=== PATIENT | female | born 1970 | race Caucasian/White ===

== ENCOUNTER 2018-06-27 15:30 | Emergency (ER) | payer OTHER ==
[2018-06-27 15:35] VITALS: BP 113/61
--- NOTE | 2018-06-27 16:23 | EDPHY ---
H & P Stated Complaint: l calf pain/hx dvt 2003 Time Seen by Provider: 06/27/18 15:55 - Personal History LMP (Females 10-55): Post Menopausal Current Tetanus Diphtheria and Acellular Pertussis (TDAP): Yes - Medical/Surgical History Hx Asthma: No Hx Chronic Respiratory Disease: No Hx Diabetes: No Hx Cardiac Disease: No Hx Renal Disease: No Hx Cirrhosis: No Hx Alcoholism: No Hx HIV/AIDS: No Hx Splenectomy or Spleen Trauma: No Other PMH: denies - Social History Smoking Status: Never smoked Constitutional: Initial Vital Signs Temperature (C) 36.6 C 06/27/18 15:32 Heart Rate 79 06/27/18 15:32 Respiratory Rate 18 06/27/18 15:32 Blood Pressure 113/61 06/27/18 15:32 O2 Sat (%) 96 06/27/18 15:32 O2 Delivery Mode Room Air Allergies/Adverse Reactions: No Known Allergies Allergy (Verified 06/27/18 15:32) Home Medications: Medication Instructions Recorded NK [No Known Home Meds] 06/27/18 Medical Decision Making - Diagnostics Imaging Results: Imaging Impressions Extremity Venous Study 06/27/18 15:49 Impression: There is no sonographic evidence of deep or superficial vein thrombosis in the left lower extremity. Findings were discussed with Jaspal Rehman PA-C, who will convey the information to Frandy Perry MD at 16:38, on 06/27/2018. Imaging: Discussed imaging studies w/ freight caller Radiologist ED Course/Re-evaluation: CHIEF COMPLAINT: Left calf pain HISTORY OF PRESENT ILLNESS: The patient is a 48 y/o female with a prior history of calf DVT during a in 2003 and strong family history of clotting issues who arrives complaining of a left calf pain for the last few weeks. She cannot identify an obvious precipitating cause and is concerned for a recurrent DVT. She denies swelling, redness, chest pain, or dyspnea. She reports her father and brother had PEs starting at age 50. She has had extensive prior work ups for hypercoagulability that have all been negative. No other symptoms. REVIEW OF SYSTEMS: A comprehensive 10 system review of systems is otherwise negative aside from elements mentioned in the history of present illness and medical decision making. PHYSICAL EXAM: HR, BP, O2 Sat, RR. Temp noted General Appearance: Alert, well hydrated, appropriate, and non-toxic appearing. Head: Atraumatic without scalp tenderness or obvious injury Eyes: Pupils equal, round, reactive to light and accommodation, EOMI, no trauma , no injection. Nose: Atraumatic, no rhinorrhea, clear. Throat: Mucus membranes moist. Neck: Supple, nontender, no lymphadenopathy. Respiratory: No retractions, no distress, no wheezes, and no accessory muscle use. Lungs are clear to auscultation bilaterally. Cardiovascular: Regular rate and rhythm, no murmurs, rubs, or gallops. Good capillary refill all extremities. Gastrointestinal: Abdomen is soft, nontender, non-distended, no masses, no rebound, no guarding, no peritoneal signs. Musculoskeletal: Normal active ROM of all extremities, atraumatic. Neurological: Alert, appropriate, and interactive. The patient has non-focal cranial nerves, motor, sensory, and cerebellar exam. Skin: No rashes, good turgor, no nodules on palpation. Past medical history: DVT during 2004 Past surgical history: Nothing recently Family history: Father and brothers with DVTs and PEs as early as age 50. Social history: Lives in [place]. Employed at [email or web address]. DIAGNOSTICS/PROCEDURES/CRITICAL CARE TIME: Left leg US: no DVT DIFFERENTIAL DIAGNOSIS: The differential diagnosis for the patient's leg swelling included but was not limited to hypoalbuminemia, congestive heart failure, cor pulmonale, venous stasis, trauma, and DVT. MEDICAL DECISION MAKING: This is a 48 y/o female with a history of prior DVT and strong family history of clotting issues who presents with a few-week history of left calf pain with no other symptoms or obvious preceding event. Exam is unremarkable. US is negative for DVT. She will be discharged home with standard care and follow up instructions. Return precautions discussed. Departure - Departure Disposition: Home, Routine, Self-Care Clinical Impression: Pain of left calf Condition: Good Instructions: Leg Pain (ED) Additional Instructions: No evidence of DVT on ultrasound today. Please follow up with your primary care provider as needed. Return to the ED for severe pain, chest pain, shortness of breath, or other worsening of condition. Referrals: Aman Rainey MD [Primary Care Provider] - As per Instructions Report Scribed for: Frandy Perry Report Scribed by: Marifer Mcdermott Date of Report: 06/27/18 Time of Report: 17:05
== END 2018-06-27 17:34 | disposition home or self-care (01) ==
DX: M79.662 Pain in left lower leg (principal); Z86.718 Personal history of other venous thrombosis and embolism; Z78.0 Asymptomatic menopausal state